=== PATIENT | female | born 1960 | race Hispanic/Latino ===

== ENCOUNTER 2023-06-06 18:34 | Emergency (ER) | payer OTHER ==
[~2023-06-06] VITALS: Ht 162.6 cm; Wt 76.7 kg
[2023-06-06 20:48] VITALS: BP 136/71; PULSE 77; RESP 18
== END 2023-06-07 03:11 | disposition home or self-care (01) ==
LOC: EDH 18:34
DX: S60.222A Contusion of left hand, initial encounter (principal); S90.112A Contusion of left great toe without damage to nail, initial encounter; S80.01XA Contusion of right knee, initial encounter; E78.00 Pure hypercholesterolemia, unspecified; W01.0XXA Fall on same level from slipping, tripping and stumbling without subsequent striking against object, initial encounter; Y93.89 Activity, other specified; Y92.89 Other specified places as the place of occurrence of the external cause; Y99.8 Other external cause status
CPT/HCPCS: 73110; 73130; 73562; 73660